=== PATIENT | female | born 1970 | race Caucasian/White ===

== ENCOUNTER 2018-05-05 09:29 | Inpatient (IN) ==
[2018-04-28 15:46] LABS: Basophils # (Auto) 0.1 K/mcL (0.0-0.3); Basophils % (Auto) 0.6 % (0.0-2.0); Eosinophils # (Auto) 0.2 K/mcL (0.0-0.7); Eosinophils % (Auto) 2.2 % (0.0-7.0); Lymphocytes # (Auto) 2.9 K/mcL (1.5-4.8); Lymphocytes % (Auto) 27.6 % (15.5-49.0); Mean Corpuscular HGB Conc 32.9 g/dL (31.0-36.0); Mean Corpuscular Hemoglobin 32.6 pg (26.0-34.0); Monocytes # (Auto) 0.7 K/mcL (0.1-0.9); Monocytes % (Auto) 6.6 % (1.0-12.0); Platelet Count 280 K/mcL (140-440); RBC 4.89 M/mcL (4.00-5.20); Red Cell Distribution Width 13.2 % (11.5-14.5)
[2018-04-28 16:15] LABS: Blood Urea Nitrogen 15 mg/dl (6-20)
[2018-04-28 16:49] LABS: Appearance,Urine CLEAR; Bilirubin,Urine NEG (NEG); Color,Urine YELLOW; Glucose,Urine (UA) NEGATIVE (NEG); Leukocyte Esterase,Urine NEG /uL (NEG); Protein,Urine NEG (NEG); Urine Blood NEG mg/dL (<0.03)
[2018-04-28 16:56] LABS: HCG,Serum NEGATIVE <10 (<10 mIU/ml)
[~2018-05-05 09:29] MED LIST: 0.9 % SODIUM CHLORIDE 9 ML, KETOROLAC 30 MG, ROPIVACAINE HCL/PF 49.5 ML, EPINEPHrine 0.... IJ SCH; ACETAMINOPHEN 500 MG TABLET PO SCH; CELECOXIB 200 MG CAPSULE PO SCH; IPRATROPIUM/ALBUTEROL 3 ML AMPUL.NEB NEB PRN; PREGABALIN 75 MG CAPSULE PO SCH; SCOPOLAMINE 1 PATCH PATCH TOPICAL PRN; ceFAZolin 1 GM VIAL IV SCH; oxyCODONE 10 MG TAB.ER.12H PO SCH
[2018-05-05] MEDS ORDERED: POTASSIUM CHLORIDE 20 MEQ TABLET PO ONE (11:07)
[2018-05-05] MEDS ORDERED: GENTAMICIN SULFATE 800 MG/20 ML VIAL IR ONE (12:42)
[2018-05-05] MEDS ORDERED: ROPIVACAINE HCL/PF 20 ML VIAL IJ ONE (13:15)
[2018-05-05] MEDS ORDERED: DEXAMETHASONE 10 MG/ML VIAL IV ONE (13:15)
[2018-05-05] MEDS ORDERED: MIDAZOLAM 5 MG/5 ML VIAL IV ONE (13:15)
[2018-05-05] MEDS ORDERED: PROPOFOL 200 MG/20 ML VIAL IV ONE (13:15)
[2018-05-05] MEDS ORDERED: GLYCOPYRROLATE 0.2 MG/ML VIAL IV ONE (13:15)
[2018-05-05] MEDS ORDERED: LIDOCAINE HCL/PF 100 MG/5 ML SYRINGE IV ONE (13:15)
[2018-05-05] MEDS ORDERED: TRANEXAMIC ACID 1,000 MG/10 ML VIAL IV ONE ×2 (13:15→15:28)
[2018-05-05] MEDS ORDERED: KETAMINE 100 MG/ML ML IV ONE (13:15)
[2018-05-05] MEDS ORDERED: ONDANSETRON 4 MG/2 ML VIAL IV ONE (13:15)
[2018-05-05] MEDS ORDERED: PHENYLEPHRINE 10 MG/ML VIAL IV ONE (13:15)
[2018-05-05] MEDS ORDERED: POTASSIUM PHOSPHATE 40 MEQ in DEXTROSE 5% IN WATER 500 ML IV ONE (15:00)
[2018-05-05] MEDS ORDERED: fentaNYL 100 MCG/2 ML VIAL IV PRN (15:03)
[2018-05-05] MEDS ORDERED: NALOXONE HCL 0.4 MG/ML VIAL IV PRN (15:03)
[2018-05-05] MEDS ORDERED: FLUMAZENIL 0.1 MG/ML ML IV PRN (15:03)
[2018-05-05] MEDS ORDERED: METHOCARBAMOL 1,000 MG/10 ML VIAL IV PRN (15:03)
[2018-05-05] MEDS ORDERED: ONDANSETRON 4 MG/2 ML VIAL IV PRN ×2 (15:03→15:40)
[2018-05-05] MEDS ORDERED: IPRATROPIUM/ALBUTEROL 3 ML AMPUL.NEB NEB PRN (15:03)
[2018-05-05] MEDS ORDERED: MEPERIDINE 25 MG/ML SYRINGE IV PRN (15:03)
[2018-05-05] MEDS ORDERED: LACTATED RINGERS 250 ML IV PRN (15:03)
[2018-05-05] MEDS ORDERED: BENZOCAINE/MENTHOL 1 LOZENGE PO PRN ×2 (15:03→15:40)
[2018-05-05] MEDS ORDERED: LACTATED RINGERS 1,000 ML IV SCH (15:15)
--- NOTE | 2018-05-05 15:39 | Brief Operative Note ---
Date of procedure: 05/05/18 Pre-op diagnosis: Right knee severe djd Post-op diagnosis: same Procedure: right robotic total knee Grafts/Implants: Yes Anesthesia: GETA Surgeon: Ramsey Velez [employer] Foul Judge: Andrés Woodward Estimated blood loss (cc): 100 Tourniquet Time (Minutes): 75 Specimens Removed/Pathology: none sent Condition: stable Disposition: PACU
[2018-05-05] MEDS ORDERED: ACETAMINOPHEN 325 MG TABLET PO PRN (15:40)
[2018-05-05] MEDS ORDERED: BISACODYL 10 MG SUPP.RECT PR PRN (15:40)
[2018-05-05] MEDS ORDERED: MAGNESIUM HYDROXIDE 30 ML ORAL.SUSP PO PRN (15:40)
[2018-05-05] MEDS ORDERED: POLYETHYLENE GLYCOL 3350 17 GM PACKET PO PRN (15:40)
[2018-05-05] MEDS ORDERED: HYDROmorphone 2 MG/ML VIAL IV PRN (15:40)
[2018-05-05] MEDS ORDERED: TRANEXAMIC ACID 1,000 MG/10 ML VIAL IV SCH (15:40)
[2018-05-05] MEDS ORDERED: FLEETS ADULT ENEMA PR PRN (15:40)
--- NOTE | 2018-05-05 16:27 | Operative Note ---
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 PROCEDURE: Right total knee arthroplasty using revision components. SURGEON: Ramsey Velez M.D. KETTLE CHIPPER: Andrés Woodward PA-C. ANESTHESIA: General LMA anesthesia. COMPLICATIONS: None. DESCRIPTION OF PROCEDURE: The patient was brought to the operating room and put to sleep with general LMA anesthesia. Once asleep, the patient had the right leg sterilely prepped and draped in the usual sterile fashion. A timeout was performed. We confirmed the right leg as the operative site. Preop antibiotics and tranexamic acid had been given. We made a midline incision, midvastus approach performed. We placed pins above and below the joint and registered the deformity. The deformity was 3 degrees varus and a flexion contracture of approximately 18 degrees with collapse of the medial tibial surface consistent with Tori's disease. Once we did this, we proceeded with registering the center hip rotation, registered the medial and lateral malleolus, registered the intraarticular pins on the femur and tibia and registered thirty points on the femur and tibia. Once done, we then used the robot to balance the knee and align the component to correct all these deformities. It was a very complex procedure and it balanced out nicely. We irrigated thoroughly and then brought in the robot. We made our cuts on the femur and the tibial side. These bony pieces were removed. We trialed the components, removed the remnants of the meniscus and any spurs were removed, taking care to avoid any neurovascular structures. At this point, we used a posterior stabilized design cutting at a box for any stability that we would need. At this point, we then placed the trials. It seemed to balance nicely with a 9 mm poly, gaining about 5 degrees of flexion contracture according to the robot. Appearance appeared to be normal or straight. The knee was stable to varus valgus stress with stresses throughout the range of motion. We irrigated thoroughly and then cemented into place the tibial and femoral components with a 9 mm poly. The patella measured 24 mm and was cut to 15 mm, placing a 36 mm poly. This was cemented into place, giving it anatomic reduction and alignment. A small chamfer was created laterally to remove any impinging bone. We irrigated thoroughly and kept the knee at 45 degrees until all cement was dry. Once it was dry, we then took the knee through range of motion. The tibial component had a 50 mm augmented stem because of the bone loss medially. It was very stable through the range of motion. We irrigated, closed the midvastus approach with #1 Stratafix x2 stitches, #1 Stratafix for the subcutaneous layer and adhesive closure. The patient tolerated this well. There was no complication. Portals were closed with 4-0 nylon. Pins were removed, intra-articular and into the femur were all counted and removed. Laps were counted and all were accounted for. We irrigated and placed a sterile bandage. The patient awoke without difficulty. Tourniquet time was 75 minutes. RBH:kelsey Job ID: [id number] Doc ID: [id number] Ramsey Velez MD
--- NOTE | 2018-05-05 16:40 | XRay Report ---
CLINICAL INFORMATION: Right knee replacement TECHNIQUE: Portable AP and crosstable lateral right knee COMPARISON: Preoperative evaluation dated 03/21/2013 FINDINGS: Status post right total knee arthroplasty. Prosthetic components are in anatomic positions. There is soft tissue and intra-articular gas IMPRESSION: Status post right total knee arthroplasty Interpreted and Authenticated by: Chepe Santiago 05/05/18
[2018-05-05] MEDS: KETOROLAC 15 MG/ML VIAL IV SCH (17:49)
[2018-05-05] MEDS: 0.45 % SODIUM CHLORIDE 1,000 ML IV SCH (17:50)
[2018-05-05] MEDS: oxyCODONE/APAP 5/325MG TABLET PO PRN ×2 (20:59→22:24)
[2018-05-05] MEDS: ASPIRIN 325 MG ENTERIC COATED TABLET PO SCH (20:59)
[2018-05-05] MEDS: DOCUSATE SODIUM 100 MG CAPSULE PO SCH (20:59)
[2018-05-05] MEDS: FUROSEMIDE 20 MG TABLET PO SCH (20:59)
[2018-05-05] MEDS: GABAPENTIN 300 MG CAPSULE PO SCH (20:59)
[2018-05-05] MEDS: ceFAZolin 1 GM VIAL IV SCH (21:00)
[2018-05-05] MEDS ORDERED: TEMAZEPAM 15 MG CAPSULE PO PRN (21:00)
[2018-05-05] MEDS ORDERED: SENNOSIDES 1 TABLET PO SCH (21:00)
[2018-05-05] MEDS ORDERED: SIMVASTATIN 10 MG TABLET PO SCH (21:00)
[2018-05-05] MEDS: 0.9 % SODIUM CHLORIDE 10 ML SYRINGE IV SCH (22:16)
[2018-05-06] MEDS: KETOROLAC 15 MG/ML VIAL IV SCH ×3 (00:02→13:57)
[2018-05-06] MEDS: 0.45 % SODIUM CHLORIDE 1,000 ML IV SCH ×2 (03:53→10:36)
[2018-05-06] MEDS: ceFAZolin 1 GM VIAL IV SCH (04:57)
[2018-05-06] MEDS: 0.9 % SODIUM CHLORIDE 10 ML SYRINGE IV SCH ×2 (04:57→13:57)
[2018-05-06] MEDS ORDERED: OMEPRAZOLE 20 MG CAPSULE PO SCH (07:30)
[2018-05-06] MEDS ORDERED: LEVOTHYROXINE SODIUM 112 MCG TABLET PO SCH (07:30)
[2018-05-06] MEDS ORDERED: metFORMIN 500 MG TAB.XL.24H PO SCH (08:00)
[2018-05-06] MEDS ORDERED: POTASSIUM CHLORIDE 20 MEQ TABLET PO SCH (08:00)
[2018-05-06] MEDS: GABAPENTIN 300 MG CAPSULE PO SCH (08:24)
[2018-05-06] MEDS: FUROSEMIDE 20 MG TABLET PO SCH (08:25)
[2018-05-06] MEDS: DOCUSATE SODIUM 100 MG CAPSULE PO SCH (08:25)
[2018-05-06] MEDS: ASPIRIN 325 MG ENTERIC COATED TABLET PO SCH (08:27)
[2018-05-06] MEDS: oxyCODONE/APAP 5/325MG TABLET PO PRN ×2 (08:29→13:20)
[2018-05-06] MEDS ORDERED: CITALOPRAM 20 MG TABLET PO SCH (09:00)
[2018-05-06] MEDS ORDERED: CHLORTHALIDONE 25 MG TABLET PO SCH (09:00)
[2018-05-06] MEDS ORDERED: LOSARTAN 50 MG TABLET PO SCH (09:00)
--- NOTE | 2018-05-06 09:29 | Orthopedic Progress Note ---
Subjective Patient information: Note initiated : 05/06/18 at 9:28 am Service Date, if different from initiated Date: [] Patient: Rebecca Valenzuela 47 y/o F admitted on 05/05/18 for Right Total Knee Arthroplasty - [place]. Chief Complaint: [Pt is stable this morning on post operative day 1 without any significant concerns or complaints. Patients vital signs have remained stable. Patients dressing is dry and is grossly intact from a neurovascular and motor standpoint. Patients 10 point ROS is otherwise negative. ] Objective Vital signs: Vital Signs Temp Pulse Resp BP Pulse Ox 05/06/18 08:13 94 05/06/18 08:11 92 H 05/06/18 07:42 92 H 05/06/18 05:00 94 05/06/18 04:00 98.5 F 92 H 18 116/78 94 05/06/18 00:59 93 05/06/18 00:19 98.2 F 86 20 132/66 93 05/05/18 21:00 92 05/05/18 19:58 83 112/71 93 05/05/18 18:58 80 106/68 97 05/05/18 18:28 81 116/66 98 05/05/18 17:58 82 112/79 96 05/05/18 17:42 82 116/76 96 05/05/18 17:27 70 115/78 95 05/05/18 17:12 97.3 F 77 113/75 96 05/05/18 17:00 70 94 05/05/18 16:57 77 116/75 98 05/05/18 16:41 98.1 F 72 16 135/68 94 05/05/18 16:30 74 16 149/86 98 05/05/18 16:25 82 16 149/88 97 05/05/18 16:15 82 16 142/66 98 05/05/18 16:10 80 18 144/73 97 05/05/18 16:05 89 16 138/77 97 05/05/18 16:00 97.7 F 84 16 132/61 98 05/05/18 11:42 96.5 F L 16 116/82 97 Intake and Output 05/05/18 05/06/18 05/06/18 21:59 05:59 13:59 Intake Total 1500 / 1500 1355 / 1355 480 / 480 Output Total 201 / 201 500 / 500 425 / 425 Balance 1299 / 1299 855 / 855 55 / 55 Intake: IV 1205 / 1205 Sodium Chloride 0.45% 1,000 ml 1205 / 1205 @ 100 mls/hr IV .Q10H MARIO Rx#: [id number] Oral 150 / 150 480 / 480 IV - Manual Only 1500 / 1500 Output: Void Amount 100 / 100 500 / 500 425 / 425 # of times incontinent of urine 1 / Estimated Blood Loss 100 / 100 Other: Meal Breakfast Percent of Meal Consumed 100% Feeding Ability Independent Urine Color Bright Yellow Urine Odor Normal # Voids 2 1 Weight 320 lb Intake & Output: Intake & Output 05/05/18 05/06/18 05/06/18 21:59 05:59 13:59 Intake Total 1500 / 1500 1355 / 1355 480 / 480 Output Total 201 / 201 500 / 500 425 / 425 Balance 1299 / 1299 855 / 855 55 / 55 Weight 320 lb Intake: IV 1205 / 1205 Sodium Chloride 0.45% 1,000 ml 1205 / 1205 @ 100 mls/hr IV .Q10H MARIO Rx#: [id number] Oral 150 / 150 480 / 480 IV - Manual Only 1500 / 1500 Output: Void Amount 100 / 100 500 / 500 425 / 425 # of times incontinent of urine 1 / Estimated Blood Loss 100 / 100 Other: Meal Breakfast Percent of Meal Consumed 100% Feeding Ability Independent Urine Color Bright Yellow Urine Odor Normal # Voids 2 1 Incision: Yes healing Incision clean and dry: Yes Dressing: Yes clean Weight bearing status: full Neurological exam IM: Yes motor sensory intact, Yes neurovascular intact Extremities exam IM: Yes Foot pink and warm, Yes neurovascular intact - Labs CBC & BMP: 05/06/18 05:09 04/28/18 13:43 Labs: 05/06/18 04/28/18 05:09 13:43 Hgb 15.9 H Hct 43.7 48.4 H Assessment and Plan (1) Hx of total knee arthroplasty The patient has been educated regarding dressing care, Physical Therapy recommendations, home exercises, restrictions, and follow up appointments. The patient has had all necessary DME prescribed. The patient has remained relatively stable during their hospital course. Leave Dermabond patch intact until followup Status: Acute
--- NOTE | 2018-05-06 09:32 | Discharge Summary ---
Ortho Discharge - TKA - Patient Instructions Diet: Regular Diet Activity: activity as tolerated, weight bearing as tolerated Total Knee Protocol: For Total Knee: Start ROM DOMINICK with stationary bike or rocking chair. Work on gaining full extension of knee. Posterior dislocation precautions provided. Hip abductor strengthening and gait training instructions provided. Apply Cryocuff as instructed. Dressing Care: May shower in 2 days Additional Instructions: Do the exercises at home that physical therapy gave you. Weight bearing as tolerated. Activity as tolerated. Take your prescription, photo ID, insurance cards, and current medication list with you to your first physical therapy appointment. Take your prescription to pick up driver any medication or equipment (such as walker, crutches, toilet riser or C.P.M.) Wear comfortable clothing for your physical therapy. Consider premedicating with pain medication 45 minutes prior to physical therapy appointment. You have Dermabond (a waterproof dressing with a mesh-like appearance) covering your surgical incision. Leave open to air. You may start showering on post op day #2, which is Tuesday, January 04. The Dermabond dressing can get wet. Do not scrub dressing. Do not use soaps, creams , or lotions over the dressing. Pat dry. No bathing or soaking in hot tub until released by surgeon. To avoid constipation while taking any narcotic pain medication, take an over the counter stool softener/laxative. Use your Cryocuff or ice packs as directed, on for 20 minutes at a time throughout the day. This and elevation will help with pain and swelling. Call your physician for fevers above 100.5 or pain not controlled by medication. Your prescriptions are with your discharge information. Some medications were electronically transmitted to your pharmacy of choice. You will be taking Aspirin 325 mg 2 x daily for 30 days to prevent blood clots. - Problem Maintenance (1) Hx of total knee arthroplasty Status: Acute - Follow Up Plan Disposition: Home, Self-Care Prognosis: Good Rehab Potential: Good I certify that the patient requires SNF services: No Overall status at discharge: patient is progressing back to baseline - Orders For Discharge Prescriptions: Aspirin [Ecotrin] 325 mg PO BID #60 tab.ec Docusate Sodium [Colace] 100 mg PO BID #60 capsule oxyCODONE/APAP [Percocet 5-325 mg] 1 - 2 tab PO Q4HP PRN #75 tablet PRN Reason: Pain Level 3-6
== END 2018-05-06 14:22 | disposition home or self-care (01) | DRG 470 ==
LOC: MEDSUR 09:29
PROVIDERS: ADMIT Orthopaedic Surgery; ATTEND Orthopaedic Surgery